=== PATIENT | female | born 1960 ===

== ENCOUNTER 2018-10-19 12:19 | Day surgery (SDC) | payer OTHER ==
[2018-10-19] MEDS ORDERED: Lidocaine PF 2% (5 ml) Inj (For Cardiac Arrhy) ONE (14:20)
[2018-10-19] MEDS ORDERED: Iodixanol 320 MG/ML 100 ML BOTTLE IV ONE (14:22)
[2018-10-19] MEDS ORDERED: Iodixanol 320 MG/ML 200 ML BOTTLE IV ONE (14:22)
[2018-10-19] MEDS ORDERED: Iohexol 350mgl/ml 50 ML ONE (14:23)
[2018-10-19] MEDS ORDERED: Midazolam 2 MG/2 ML VIAL ONE (14:39)
--- NOTE | 2018-10-19 18:41 | CARD ---
APPROVED REPORT Date of service: 10/19/2018 EKG Measurement Heart [id number] <Conclusion> Sinus bradycardia T wave abnormality, consider anterior ischemia Abnormal ECG
[2018-10-19 19:01] VITALS: TEMP 98.3
[2018-10-19 23:41] LABS: VENOUS BLOOD GAS BASE EXCESS -1.3 mmol/L (0.0-2.0); VENOUS BLOOD GAS PO2 47 mm/Hg (30-55); VENOUS BLOOD PH 7.36 (7.32-7.43)
[2018-10-19 23:44] LABS: VENOUS BLOOD GAS BASE EXCESS -1.3 mmol/L (0.0-2.0); VENOUS BLOOD GAS PO2 67 mm/Hg (30-55); VENOUS BLOOD PH 7.38 (7.32-7.43)
[2018-10-19 23:45] LABS: VENOUS BLOOD GAS BASE EXCESS -1.3 mmol/L (0.0-2.0); VENOUS BLOOD GAS PO2 46 mm/Hg (30-55); VENOUS BLOOD PH 7.36 (7.32-7.43)
[2018-10-19 23:47] LABS: VENOUS BLOOD GAS BASE EXCESS -1.1 mmol/L (0.0-2.0); VENOUS BLOOD GAS PO2 41 mm/Hg (30-55); VENOUS BLOOD PH 7.35 (7.32-7.43)
[2018-10-19 23:50] LABS: VENOUS BLOOD GAS BASE EXCESS -1.3 mmol/L (0.0-2.0); VENOUS BLOOD GAS PO2 46 mm/Hg (30-55); VENOUS BLOOD PH 7.36 (7.32-7.43)
--- NOTE | 2018-10-19 23:50 | CARDCATH ---
PROCEDURE DATE: 10/19/2018 RIGHT AND LEFT HEART CATHETERIZATION INDICATIONS: The patient is a 57-year-old female who was admitted to [facility] because of chest pain, myocardial infarction is ruled out. Echocardiac study was consistent with PFO or small ASD. There was mild pulmonary hypertension. The patient was transferred to [facility] for right and left heart catheterization. The procedure and its risks fully explained to the patient who understood and agreed for the procedure. PROCEDURE: After local infiltration with 1% lidocaine, a 6-[place] sheath was placed in the right femoral artery and 7-[place] sheath was inserted in the right femoral vein. A 7-[place] catheter was advanced into the right atrium, right ventricle, pulmonary artery, and pulmonary capillary wedge pressure. O2 saturations were obtained from the inferior vena cava, superior vena cava, high, mid, and low right atrium from the right ventricle, pulmonary artery, and the pulmonary capillary wedge position as well as the central aortic O2 saturation and the pressure tracings were consistent with mild pulmonary hypertension. The RV systolic pressure was about mmHg and the systolic pressure, the highest was 25 mmHg. Right atrial pressure is within normal limits. All the measurements for calculating the cardiac output and shunt ratio were obtained, but calculation has not been performed yet by the technical team as by the time of the completion of procedure, O2 saturation results have not been resulted yet. LEFT HEART CATHETERIZATION: Left and right coronary angiography were performed with 6-[place] Irish JL4 and JR4 diagnostic catheters. Left angiogram was performed with 6-[place] pigtail catheter in the BENINESE projection. The patient tolerated the procedure well without any complications. ANGIOGRAPHIC FINDINGS: Selective injection of the left coronary artery revealed left main to be normal vessel. Left main bifurcated into medium size LAD and medium-sized circumflex artery. Both LAD and circumflex artery with significantly tortuous vessels that had no significant disease, though significant opacification of the left ventricular cavity from the capillary portion of the less coronary circulation. Selective injection of the right coronary artery revealed a medium-sized dominant vessel. The distal portion of the LAD was significantly tortuous, no significant disease; however, there was also significant early opacification of the left ventricular cavity from the capillary part of the right coronary circulation suggestive of some degree of arterial ventricular shunting. Left ventriculogram performed in the BENINESE projection revealed no evidence of anteroseptal defect, normal ejection fraction. CONCLUSION: No coronary artery disease is noted. However, there was significant arterial ventricular shunting from the coronary capillaries. No evidence of ASD. Normal ejection fraction. Calculation of the interatrial shunt ratio is still pending; however, as evidenced by the echo, defect must be a very small one, it was not visible; however, color Doppler showed evidence of shunting with left to right turbulent jet. From the coronary point of view, the patient can be discharged with follow up of the patient's calculated shunt ratio. In the meantime, the patient will be seen by Dr. Rodriguez, cardiothoracic surgeon as an outpatient. Geoffrey Borja MD
[2018-10-19 23:51] LABS: VENOUS BLOOD GAS BASE EXCESS -1.1 mmol/L (0.0-2.0); VENOUS BLOOD GAS PO2 42 mm/Hg (30-55); VENOUS BLOOD PH 7.37 (7.32-7.43)
[2018-10-19 23:57] LABS: VENOUS BLOOD GAS BASE EXCESS -1.1 mmol/L (0.0-2.0); VENOUS BLOOD GAS PO2 58 mm/Hg (30-55); VENOUS BLOOD PH 7.37 (7.32-7.43)
[2018-10-20 00:11] LABS: VENOUS BLOOD GAS BASE EXCESS -0.8 mmol/L (0.0-2.0); VENOUS BLOOD GAS PO2 34 mm/Hg (30-55); VENOUS BLOOD PH 7.36 (7.32-7.43)
[2018-10-20 00:13] LABS: VENOUS BLOOD GAS BASE EXCESS -0.4 mmol/L (0.0-2.0); VENOUS BLOOD GAS PO2 37 mm/Hg (30-55); VENOUS BLOOD PH 7.36 (7.32-7.43)
[2018-10-20 00:54] VITALS: PULSE 55
[2018-10-20 00:55] LABS: VENOUS BLOOD PH 7.35 (7.32-7.43)
[2018-10-20 00:57] LABS: VENOUS BLOOD GAS BASE EXCESS -1.1 mmol/L (0.0-2.0); VENOUS BLOOD GAS PO2 41 mm/Hg (30-55)
[2018-10-20 01:27] VITALS: BP 143/64; RESP 18; O2SAT 98
== END 2018-10-20 00:01 | disposition short-term general hospital (02) ==
LOC: CATH 12:19 → ICU 15:38 → CATH 10-20 00:01
PROVIDERS: ATTEND Specialist
DX: R07.9 Chest pain, unspecified (principal); I27.20 Pulmonary hypertension, unspecified; I10 Essential (primary) hypertension; E03.9 Hypothyroidism, unspecified
CPT/HCPCS: 82803; 93005; 93460; 99152; 99153; C1760; C1769; C1894; C2629; J1644 ×2; J2250; J3010; Q9966; Q9967 ×2